=== PATIENT | male | born 1975 | race Caucasian/White ===

== ENCOUNTER 2020-11-09 21:20 | Emergency (ER) | payer OTHER ==
[~2020-11-09] VITALS: Ht 188 cm; Wt 122.5 kg
[2020-11-09] MEDS ORDERED: LISINOPRIL-HCT1 EAC1 PO (21:40)
[2020-11-09] MEDS ORDERED: ATORVASTATIN CA20 MG PO (21:40)
--- NOTE | 2020-11-10 06:42 | EKG ---
[facility] [address] [facility] [place] [address] Signed Normal sinus rhythm Incomplete right bundle branch block Borderline ECG No previous ECGs available Confirmed by MAYITO AMANDA MD ([id number]) on 11/10/2020 6:42:23 AM Electronically Signed By: MAYITO AMANDA MD 11/10/20 0642 PATIENT NAME: YESSICA NEGRETE LULA Electrocardiogram DATE OF : 73 PHYSICIAN: MAYITO AMANDA MD REPORT #: [id number] REPORT IS CONFIDENTIAL AND NOT TO BE RELEASED WITHOUT AUTHORIZATION
== END 2020-11-09 22:51 | disposition home or self-care (01) ==
LOC: ED 21:20
DX: R07.89 Other chest pain (principal); I10 Essential (primary) hypertension; Z79.899 Other long term (current) drug therapy
CPT/HCPCS: 71046; 80053; 83735; 84484; 85025; 85610; 85730; 93005; 93010; 99285-25

== ENCOUNTER 2025-07-05 21:17 | Emergency (ER) | payer OTHER ==
[~2025-07-05] VITALS: Ht 188 cm; Wt 123.9 kg
[~2025-07-05 21:17] MED LIST: ADULT LOW DOSE81 MG PO; ATORVASTATIN CA20 MG PO; ATORVASTATIN CA40 MG PO; LISINOPRIL-HCT1 EAC1 PO; METOPROLOL SUCC50 MG PO; METOPROLOL TART25 MG PO; WARFARIN SODIU2.5 MG PO; WARFARIN SODIUM3 MG PO; WEGOVY0.5 MG/0.5 SUB-Q
[2025-07-05 22:42] VITALS: BP 113/69
== END 2025-07-05 22:44 | disposition home or self-care (01) ==
LOC: ED 21:17
DX: S70.11XA Contusion of right thigh, initial encounter (principal); R55 Syncope and collapse; I10 Essential (primary) hypertension; Z95.2 Presence of prosthetic heart valve; Z79.82 Long term (current) use of aspirin; Z79.01 Long term (current) use of anticoagulants; Z79.899 Other long term (current) drug therapy; Z79.85 Long-term (current) use of injectable non-insulin antidiabetic drugs; W55.12XA Struck by horse, initial encounter
CPT/HCPCS: 73552; 99284